=== PATIENT | female | born 1990 | race Caucasian/White ===

== ENCOUNTER 2020-07-01 08:34 | Emergency (ER) | payer SELFPAY ==
[2020-07-01 08:38] VITALS: BP 106/68; PULSE 97; RESP 16; TEMP 36.4; O2SAT 98; BMI 21.7
[2020-07-01 09:13] VITALS: BP 110/87; PULSE 86; RESP 20; O2SAT 98
--- NOTE | 2020-07-01 09:22 | W.ED.FEMALGU ---
HPI - Female Genitourinary General: Chief complaint: General Medical Stated complaint: vaginal pain Time Seen by Provider: 07/01/20 08:44 Source: patient Mode of arrival: ambulatory Limitations: no limitations History of Present Illness: HPI Narrative: Patient is a 29-year-old female who presents to ED today with a complaint of genital pain and lesions that she has noticed over the past few days. Patient does not complain of any abdominal/pelvic pain. She has not noticed any vaginal discharge. She denies new sexual partners. She denies previous similar lesions. She is not having any urinary symptoms. MD elicited complaint: genital rash Location of symptoms: external genitalia Severity: moderate Consistency: constant Vaginal discharge: none Vaginal bleeding: none Associated symptoms: Deny abdominal pain, nausea or vaginal discharge Treatment prior to arrival: none Sexual activity: Yes Patient : No Date of Last Menstrual Period: 06/30/20 Review of Systems Const: Denies: fever(s), chills, body aches, fatigue or malaise ENMT: Denies: throat pain or odynophagia GI: Denies: abdominal pain, nausea, vomiting or diarrhea : Reports: genital lesions; Denies: flank pain, difficulty voiding, dysuria, urinary frequency, urinary urgency, urinary hesitancy, hematuria, vaginal odor, vaginal bleeding or vaginal discharge Skin/Breast: Reports: rash PFSH ED PFSH: Social History (Updated 07/01/20 @ 08:42 by Luis Mahmood RN) Smoking and tobacco status: current every day smoker Alcohol intake: never Substance/Drug Use: never Female Reproductive History: Date of last menstrual period: 06/30/20 Physical Exam Const: COMMON NORMALS: patient oriented x3, no limitations and alert GENERAL APPEARANCE: cooperative GI: COMMON NORMALS: Normal to inspection, nondistended, normoactive bowel sounds present, Soft to palpation, non-tender, No hepatosplenomegaly present and no masses PALPATION: Yes Soft to palpation and Yes No hepatosplenomegaly present : OB/EXTERNAL & SPECULUM: Deferred OB/external & speculum exam OTHER: pt has very large areas of genital warts affecting perianal region; she has several ulcerations consistent with HSV infection located on bilateral labia Neuro: COMMON NORMALS: patient oriented x3 SENSORIUM/ORIENTATION: Yes alert Course Vital Signs: Vital signs: Vital Signs Temperature 97.5 F L 07/01/20 08:38 Pulse Rate 92 07/01/20 09:42 Respiratory Rate 20 H 07/01/20 09:42 Blood Pressure 124/71 07/01/20 09:42 Pulse Oximetry 98 07/01/20 09:42 MDM - Female MDM Narrative: Medical decision making narrative: 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; she will be placed on Valtrex for her herpetic infection; she will be referred to [facility] for further management as she does not have a PCP and her condyloma lesions are rather large/extensive; pt defers pelvic exam today stating the lesions are too painful Discharge Plan Discharge Patient Disposition: Home Clinical Impression: Anogenital warts in female Genital herpes Qualifiers: Herpes simplex infection site: vulvovaginitis Qualified Code(s): A60.04 - Herpesviral vulvovaginitis Condition: Stable Prescriptions: New valacyclovir 1 gram tablet 1,000 mg PO BID 10 Days Qty: 20 RF: 0 Discharge Orders: Discharge Order (Routine); Ordered 07/01/20 Ordered By: Deborah Lake Patient Instructions: Genital Herpes - Female, Genital Warts - Female, Genital Herpes Simplex (ED), Genital Warts (ED) Activity Restrictions/Additional Instructions: As we discussed it is imperative that you follow-up with the women's health clinic. There are options regarding treatment for your genital warts. We are placing you on antiviral medication for the herpetic infection. No sexual intercourse until you complete treatment of the antiviral medication. You need to alert all sexual partners of infection. Discharge Date/Time: 07/01/20 09:48 Coding Level of Care Code ED [employer] Operator for Edna Benton
[2020-07-01 09:42] VITALS: BP 124/71; PULSE 92; RESP 20; O2SAT 98
--- NOTE | 2020-07-01 12:44 | DCPLANNER ---
manager payer was asked to schedule a follow up appointment for patient with [facility]. manager payer called the [facility] spoke with Adri, gave clinic patients information. manager payer was told that patients information would be printed and reviewed. Clinic will call patient with appointment information.
--- NOTE | 2020-07-02 14:08 | DCPLANNER ---
Patient has a follow up appointment scheduled for Monday, July 06, 2020 at 8:30 with Adri Claros. Clinic will call patient with appointment information.
--- NOTE | 2020-07-12 14:42 | DCPLANNER ---
Patient had a follow up appointment scheduled for 07.06.20 with [facility] - patient did not attend appointment.
== END 2020-07-01 09:48 | disposition home or self-care (01) ==
PROVIDERS: Emergency Provider Physician Assistant
DX: A60.04 Herpesviral vulvovaginitis (principal); A63.0 Anogenital (venereal) warts; F17.210 Nicotine dependence, cigarettes, uncomplicated
CPT/HCPCS: 12345; 99281; 99282